=== PATIENT | male | born 1955 | race Caucasian/White ===

== ENCOUNTER 2017-05-27 15:37 | Emergency (ER) | payer BC, OTHER ==
--- NOTE | 2017-05-27 15:49 | ED.PDOC ---
History of Present Illness - General Chief Complaint: Lower Extremity Injury Stated Complaint: left hip pain Time Seen by Provider: 05/27/17 15:48 Source: patient - History of Present Illness Initial Comments: Gino Roque 61 y/o male stated that as he was going down his [employer] [address] truck holding on the door handle his gripped got loose and .left foot fell hard to the ground with shooting pain on the whole left lower extremity.Stated happened at work Occurred: just prior to arrival Pain - Lower Extremity: moderate: Left Thigh/Hip, Left Knee Method of Injury: fell, twisted Improving Factors: rest Worsening Factors: movement Allergies/Adverse Reactions: Allergies Penicillins Allergy (Verified 05/27/17 16:13) Rash Home Medications: Ambulatory Orders Hydrochlorothiazide 25 mg PO DAILY 07/09/16 Lisinopril 10 mg PO DAILY 07/09/16 Lovastatin 20 mg PO BEDTIME 07/09/16 Methocarbamol [Robaxin] 750 mg PO BID #14 tab 05/27/17 Naproxen [Naprosyn] 500 mg PO BID #20 tab 05/27/17 Review of Systems - Review of Systems Constitutional: States: no symptoms reported EENTM: States: no symptoms reported Respiratory: States: no symptoms reported Cardiology: States: no symptoms reported Gastrointestinal/Abdominal: States: no symptoms reported Genitourinary: States: no symptoms reported Musculoskeletal: States: see HPI Skin: States: no symptoms reported Neurological: States: no symptoms reported Past Medical History (General) - Patient Medical History Hx Congestive Heart Failure: Yes Hx Hypertension: Yes Hx Diabetes: No Hx MRSA: No Surgical History: other - 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 - Vaccination History Hx Tetanus, Diphtheria Vaccination: No Hx Influenza Vaccination: No Hx Pneumococcal Vaccination: No - Social History Hx Tobacco Use: No Hx Alcohol Use: Yes - daily 2-4 beers Hx Substance Use: No Hx Substance Use Treatment: No Hx Depression: No - Activities of Daily Living Patient Lives Alone: No - family Grooming Ability: Independent Eating (Feeding) Ability: Independent Toileting Ability: Independent Family Medical History - Family History Father Living Status: Age at (years of age): 56 Cause of : [place] Hx Family Hypertension: Yes - dad/mom Hx Cardiac Disease: Yes - dad Physical Exam - Physical Exam General Appearance: Alert, Anxious, No apparent distress Eyes, Ears, Nose, Throat: PERRL/EOMI, normal ENT inspection, TMs normal Neck: non-tender, full range of motion Cardiovascular/Respiratory: regular rate, rhythm, no M/R/G, normal peripheral pulses Gastrointestinal/Abdominal: non-tender, no organomegaly Back: normal inspection, no CVA tenderness, no vertebral tenderness Thigh/Hip: normal inspection, limited ROM - left hip /pain, pain - external / internal rotation left hip, soft tissue tenderness Leg: normal inspection, no evidence of injury, soft tissue tenderness Ankle: normal inspection, no evidence of injury, soft tissue tenderness Foot: normal inspection, soft tissue tenderness - left foot Neuro/Tendon: normal sensation, normal motor functions, normal tendon functions , responds to pain Mental Status: alert, oriented x 3 Skin: normal color, warm/dry Progress - Progress Progress: 05/27/17 16:48 Vital Signs - 8 hr 05/27/17 15:38 Temperature 98.5 F Pulse Rate [ 81 Left Radial] Respiratory 20 Rate Blood Pressure 157/83 [Left Arm] O2 Sat by Pulse 95 Oximetry - EKG/XRAY/CT XRAY: pelvis - left no fractureleft no fracture,no fracture Xray Comments: NO FRACTURES NOTED Departure - Departure Clinical Impression: Fall on same level from slipping as cause of accidental injury Muscle strain of left lower extremity Qualifiers: Encounter type: initial encounter Qualified Code(s): S86.912A - Strain of unspecified muscle(s) and tendon(s) at lower leg level, left leg, initial encounter Time of Disposition: 16:51 Disposition: Discharge to Home or Self Care Condition: Good Instructions: DI for Muscle Strain Referrals: Yee Caldera FNP [Primary Care Provider] - 1-2 Weeks Prescriptions: Methocarbamol [Robaxin] 750 mg PO BID #14 tab Naproxen [Naprosyn] 500 mg PO BID #20 tab Home Medications: Ambulatory Orders Hydrochlorothiazide 25 mg PO DAILY 07/09/16 Lisinopril 10 mg PO DAILY 07/09/16 Lovastatin 20 mg PO BEDTIME 07/09/16 Methocarbamol [Robaxin] 750 mg PO BID #14 tab 05/27/17 Naproxen [Naprosyn] 500 mg PO BID #20 tab 05/27/17 Additional Instructions: FOLLOW UP WITH YOUR WORKERS COMP CALL FOR APPOINTMENT 05/28/2017;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
--- NOTE | 2017-05-27 16:22 | RAD ---
EXAM DESCRIPTION: Knee,Left 2 or More Views CLINICAL HISTORY: 61 years, Male, pain COMPARISON: None. FINDINGS: No fracture or dislocation. Mild degenerative narrowing patellofemoral joint space with spurring. No clearly seen joint effusion. IMPRESSION: No fracture or dislocation Electronically signed by: Samson Barry MD 05/27/2017 4:20 PM CDT
--- NOTE | 2017-05-27 16:23 | RAD ---
EXAM DESCRIPTION: Hip,Left 2 Views CLINICAL HISTORY: 61 years, Male, pain COMPARISON: None. FINDINGS: No fracture or dislocation. Mild degenerative narrowing superolaterally with spurring. There are two small benign-appearing bone islands in the femoral neck. IMPRESSION: Mild degenerative change without fracture or dislocation Electronically signed by: Samson Barry MD 05/27/2017 4:22 PM CDT
--- NOTE | 2017-05-27 16:23 | RAD ---
EXAM DESCRIPTION: Pelvis,2 or More Views CLINICAL HISTORY: 61 years, Male, pain COMPARISON: None. FINDINGS: Single frontal view the pelvis shows intact pelvic ring. Mild degenerative narrowing of both hips slightly more in the right spurring. Some mild sacroiliac degenerative change on the left. Pelvic calcifications are probably phleboliths. IMPRESSION: No fracture. Mild degenerative change. Electronically signed by: Samson Barry MD 05/27/2017 4:21 PM CDT
--- NOTE | 2017-05-27 16:25 | RAD ---
EXAM DESCRIPTION: Foot,Left 3 Views CLINICAL HISTORY: 61 years, Male, pain COMPARISON: None. FINDINGS: No fracture or dislocation. Moderate hallux valgus. Electronically signed by: Samson Barry MD 05/27/2017 4:24 PM CDT
[2017-05-27 17:28] VITALS: BP 129/83; TEMP 98.1; O2SAT 96
== END 2017-05-27 17:15 | disposition home or self-care (01) ==
LOC: ER 15:37
DX: S86.912A Strain of unspecified muscle(s) and tendon(s) at lower leg level, left leg, initial encounter (principal); I11.0 Hypertensive heart disease with heart failure; I50.9 Heart failure, unspecified; Z88.0 Allergy status to penicillin; Z79.899 Other long term (current) drug therapy; Z82.49 Family history of ischemic heart disease and other diseases of the circulatory system; W17.89XA Other fall from one level to another, initial encounter; Y92.9 Unspecified place or not applicable; Y99.0 Civilian activity done for income or pay